=== PATIENT | male | born 1955 | race Caucasian/White ===

== ENCOUNTER 2020-12-29 09:27 | Outpatient (REF) | payer OTHER, SELFPAY ==
[2020-12-29 11:34] LABS: Appearance Urine TURBID; Color Urine YELLOW; Glucose Urine UA NEG (NEG); Leukocyte Esterase Urine NEG (NEG); Nitrite Urine NEG (NEG); Specific Gravity - Urine >= 1.030 (1.005-1.025); Urine Blood NEG (NEG); Urine Ketones NEG (NEG); Urine Protein NEG (NEG-TRACE)
[2020-12-29 11:48] LABS: MANUAL DIFF FLAG NO
[2020-12-29 12:00] LABS: Basophils Percent Auto 0.7 % (0-2); Eosinophils Absolute Auto 0.1 X10*3/uL (0.0-0.4); Eosinophils Percent Auto 1.5 % (0-4); Hematocrit 41.7 % (42.0-52.0); Hemoglobin 14.1 g/dl (14.0-18.0); Imm Gran Abs Auto 0.01 X10*3/uL (0.00-0.03); Imm Gran Pct Auto 0.2 % (0.0-0.4); Lymphocytes Absolute Auto 1.1 X10*3/uL (1.2-4.9); Lymphocytes Percent Auto 27.7 % (20-40); Mean Corpuscular HGB Conc 33.8 g/dl (31.0-36.0); Mean Corpuscular Hemoglobin 29.7 pg (27.0-33.0); Mean Platelet Volume 11.2 fL (9.4-12.4); Monocytes Absolute Auto 0.4 X10*3/uL (0.1-1.2); Monocytes Percent Auto 10.5 % (2-11); Neutrophils Absolute Auto 2.4 x10*3/uL (2.0-8.3); Neutrophils Percent Auto 59.4 % (45-73); Platelet Count 223 X10*3/uL (160-400); Red Blood Count 4.74 X10*6/uL (4.60-5.80); Red Cell Distribution Width 12.4 % (11.0-16.0); White Blood Count 4.1 X10*3/uL (4.8-10.8)
[2020-12-29 12:15] LABS: Alanine Aminotransferase 28 U/L (0-40); Albumin Level 4.3 g/dL (3.5-5.0); Alkaline Phosphatase 81 U/L (39-117); Anion Gap 12 (12-20); Aspartate Amino Transferase 27 U/L (5-37); Bilirubin Total 1.4 mg/dL (0.0-1.0); Blood Urea Nitrogen 17 mg/dL (9-16); Calcium 9.4 mg/dL (8.4-10.2); Carbon Dioxide 25 mmol/L (22-29); Chloride 108 mmol/L (96-108); Cholesterol 254 mg/dL; Estimated Glomerular Filt Rate > 60; Glucose Fasting 111 mg/dL (60-99); HDL Cholesterol 69 mg/dL; LDL Cholesterol Calculated 165 mg/dl; Potassium 4.8 mmol/L (3.3-5.1); Sodium 140 mmol/L (135-145); Triglycerides 100 mg/dL
[2020-12-29 12:18] LABS: Amorphous Sediment Urine 4+ /LPF; Calcium Oxalate Crystals Urine 1+ /LPF; RBC Urine 0 /HPF (0); WBC Urine 0 /HPF (0-4)
[2020-12-29 12:38] LABS: Thyroid Stimulating Hormone 3.52 uIU/mL (0.32-4.0); Vitamin D 25-OH Total 17.9 ng/mL (>30)
[2020-12-30 12:02] LABS: Free Prostate Spec Ag 0.2 ng/mL; Percent Free Prostate Spec Ag 33 % (calc) (>25); Prostate Specific Ag Total 0.6 ng/mL (< OR = 4.0)
== END 2020-12-29 09:28 | disposition home or self-care (01) ==
LOC: HO.HMGCLDS 09:27
PROVIDERS: PCP Internal Medicine; Visit Provider Internal Medicine
DX: Z00.00 Encounter for general adult medical examination without abnormal findings (principal); E78.00 Pure hypercholesterolemia, unspecified; J45.30 Mild persistent asthma, uncomplicated; J30.1 Allergic rhinitis due to pollen; Z12.5 Encounter for screening for malignant neoplasm of prostate
CPT/HCPCS: 36415; 80053; 80061; 81001; 82306; 84154; 84443; 85025

== ENCOUNTER → 2021-02-11 09:17 | Outpatient (BNVA) | payer OTHER, SELFPAY | PROVIDERS: PCP Internal Medicine; Visit Provider Internal Medicine ==

== ENCOUNTER 2021-03-12 09:09 | Outpatient (REF) | payer OTHER, SELFPAY ==
--- NOTE | 2021-03-12 15:58 | PFT_ITS ---
FLOWS: FEV1 84% of predicted at 3.21 L. FVC 97% of predicted at 4.94 L. FEV1 to FVC ratio of 0.65. No bronchodilator response except in small to medium airways. LUNG VOLUMES: Total lung capacity 98% of predicted at 7.48 L. Residual volume 102% of predicted at 2.60 L. Slow vital capacity 95% of predicted at 4.87 L. Expiratory reserve volume 42% of predicted at 0.65 L. Diffusion capacity is mildly decreased. IMPRESSION: Mild to moderate obstructive ventilatory defect with no bronchodilator response except in small to medium airways. Decreased diffusion capacity suggests emphysema. MD ISABELLE Roche/MODL / [id number]
== END 2021-03-12 09:10 | disposition home or self-care (01) ==
LOC: HO.RESP 09:09
PROVIDERS: PCP Internal Medicine; Visit Provider Internal Medicine
DX: R06.00 Dyspnea, unspecified (principal); J44.9 Chronic obstructive pulmonary disease, unspecified
CPT/HCPCS: 94060; 94727; 94729

== ENCOUNTER → 2021-03-16 10:08 | Outpatient (BNVA) | payer OTHER, SELFPAY | PROVIDERS: PCP Internal Medicine; Visit Provider Internal Medicine ==

== ENCOUNTER 2022-03-29 09:23 | Outpatient (REF) | payer OTHER, SELFPAY ==
[2022-03-29 11:26] LABS: Appearance Urine Clear; Color Urine Yellow; Glucose Urine UA Negative (Negative); Leukocyte Esterase Urine Negative (Negative); Nitrite Urine Negative (Negative); PH 5.5 (5.0-9.0); Specific Gravity - Urine 1.025 (1.005-1.025); Urine Blood Negative (Negative); Urine Ketones Negative (Negative); Urine Protein Negative (Neg-Trace)
[2022-03-29 11:29] LABS: MANUAL DIFF FLAG NO
[2022-03-29 11:34] LABS: Bacteria Urine None Seen (None Seen); Hyaline Casts Urine 0-2 /LPF (0-2); RBC Urine 0-2 /HPF (0-2); Squamous Epithelial Cell Urine 0-2 /HPF (0-2); WBC Urine 0-5 /HPF (0-5)
[2022-03-29 11:36] LABS: Basophils Percent Auto 0.8 % (0-2); Eosinophils Absolute Auto 0.1 X10*3/uL (0.0-0.4); Hematocrit 40.4 % (42.0-52.0); Hemoglobin 13.5 g/dl (14.0-18.0); Imm Gran Abs Auto 0.01 X10*3/uL (0.00-0.03); Imm Gran Pct Auto 0.2 % (0.0-0.4); Lymphocytes Absolute Auto 1.2 X10*3/uL (1.2-4.9); Lymphocytes Percent Auto 22.6 % (20-40); Mean Corpuscular HGB Conc 33.4 g/dl (31.0-36.0); Mean Corpuscular Hemoglobin 29.1 pg (27.0-33.0); Mean Corpuscular Volume 87.1 fL (80.0-98.0); Mean Platelet Volume 10.8 fL (9.4-12.4); Monocytes Absolute Auto 0.5 X10*3/uL (0.1-1.2); Monocytes Percent Auto 9.7 % (2-11); Neutrophils Absolute Auto 3.4 x10*3/uL (2.0-8.3); Neutrophils Percent Auto 65.7 % (45-73); Platelet Count 210 X10*3/uL (160-400); Red Blood Count 4.64 X10*6/uL (4.60-5.80); Red Cell Distribution Width 12.4 % (11.0-16.0); White Blood Count 5.2 X10*3/uL (4.8-10.8)
[2022-03-29 12:04] LABS: Alanine Aminotransferase 22 U/L (0-40); Albumin Level 4.1 g/dL (3.5-5.0); Alkaline Phosphatase 87 U/L (39-117); Anion Gap 13 (12-20); Aspartate Amino Transferase 21 U/L (5-37); Bilirubin Total 1.5 mg/dL (0.0-1.0); Blood Urea Nitrogen 17 mg/dL (9-16); Calcium 9.5 mg/dL (8.4-10.2); Carbon Dioxide 22 mmol/L (22-29); Chloride 110 mmol/L (96-108); Cholesterol 179 mg/dL; Estimated Glomerular Filt Rate > 60; Glucose Fasting 103 mg/dL (60-99); HDL Cholesterol 66 mg/dL; LDL Cholesterol Calculated 97 mg/dl; Potassium 4.3 mmol/L (3.3-5.1); Sodium 141 mmol/L (135-145); Total Protein 6.5 g/dL (6.5-8.0); Triglycerides 80 mg/dL
[2022-03-29 12:06] LABS: PSA,Total (Free>4and<10) 0.74 ng/mL (0.00-4.00)
[2022-03-29 12:07] LABS: Thyroid Stimulating Hormone 3.05 uIU/mL (0.32-4.0); Vitamin D 25-OH Total 25.9 ng/mL (>30)
== END 2022-03-29 09:24 | disposition home or self-care (01) ==
LOC: HO.HMGCLDS 09:23
PROVIDERS: PCP Internal Medicine; Visit Provider Internal Medicine
DX: Z00.00 Encounter for general adult medical examination without abnormal findings (principal); Z12.5 Encounter for screening for malignant neoplasm of prostate; J45.30 Mild persistent asthma, uncomplicated; J30.1 Allergic rhinitis due to pollen; E78.00 Pure hypercholesterolemia, unspecified
CPT/HCPCS: 36415; 80053; 80061; 81001; 82306; 84153; 84443; 85025

== ENCOUNTER 2022-07-15 10:29 | Day surgery (SDC) | payer OTHER, SELFPAY ==
--- NOTE | 2022-07-14 09:33 | HO.ANESPROP2 ---
Documented by User: Lindsay Marsh NP 07/14/22 09:35 HPI - Anesthesia Eval Consult details Narrative: 67yo M for Upper Endoscopy and Colonoscopy PMFSH Active Problems Active Problems: All Active Problems (Updated 07/13/22 @ 14:10 by Lindsay Marsh NP) Allergic rhinitis (Acute) Asthma (Acute) COPD (chronic obstructive pulmonary disease) (Acute) Past Medical History Medical History (Updated 07/13/22 @ 14:10 by Lindsay Marsh NP) Allergic rhinitis Asthma COPD (chronic obstructive pulmonary disease) HLD (hyperlipidemia) Surgical History Surgical History (Updated 07/13/22 @ 14:10 by Lindsay Marsh NP) H/O colonoscopy (~2017) Social History Social History Advance Directives: No Advance Directives Information Provided: Yes Meds Allergies Allergy/AdvReac Type Severity Reaction Status Date / Time environmental allergies Allergy Sneezing Verified 07/14/22 12:10 Home Medications Medication Instructions Recorded Confirmed Last Taken Type atorvastatin 40 mg tablet 40 mg PO DAILY 02/11/21 Unknown History cetirizine 10 mg tablet 10 mg PO DAILY 02/11/21 Unknown History fluticasone propionate 50 spray intranasal 02/11/21 Unknown History mcg/actuation nasal spray,suspension montelukast 10 mg tablet 10 mg PO DAILY 02/11/21 Unknown History omeprazole 20 mg capsule,delayed 20 mg PO DAILY 02/11/21 Unknown History release albuterol sulfate 90 mcg/actuation 2 inh inhalation Q6-8H PRN 03/16/21 Unknown History aerosol inhaler coenzyme Q10 75 mg capsule (Ultra 75 mg PO DAILY 03/16/21 Unknown History CoQ10) atorvastatin 40 mg tablet 40 mg PO DAILY 07/13/22 07/13/22 Unknown History Exam Exam Date and Time: July 14, 2022 0933 Pertinent Lab Results Pertinent Lab Results: Laboratory Tests 03/29/22 03/29/22 09:33 09:33 WBC 5.2 Hgb 13.5 L Hct 40.4 L Plt Count 210 Sodium 141 Potassium 4.3 Chloride 110 H Carbon Dioxide 22 BUN 17 H Creatinine 0.90 Assessment and Plan Assessment Anesthesia Assessment: Chart Reviewed Documented by User: Isabella Loyd MD 07/15/22 11:10 [facility] Past Medical History Medical History (Updated 07/13/22 @ 14:10 by Lindsay Marsh NP) Allergic rhinitis Asthma COPD (chronic obstructive pulmonary disease) HLD (hyperlipidemia) Family History Family history of problems with anesthesia: No Surgical History Surgical History (Updated 07/13/22 @ 14:10 by Lindsay Marsh NP) H/O colonoscopy (~2017) History of Problems with Anesthesia: No Social History Social History Advance Directives: No Advance Directives Information Provided: Yes Meds Allergies Allergy/AdvReac Type Severity Reaction Status Date / Time environmental allergies Allergy Sneezing Verified 07/14/22 12:10 Home Medications Medication Instructions Recorded Confirmed Last Taken Type atorvastatin 40 mg tablet 40 mg PO DAILY 02/11/21 Unknown History cetirizine 10 mg tablet 10 mg PO DAILY 02/11/21 Unknown History fluticasone propionate 50 spray intranasal 02/11/21 Unknown History mcg/actuation nasal spray,suspension montelukast 10 mg tablet 10 mg PO DAILY 02/11/21 Unknown History omeprazole 20 mg capsule,delayed 20 mg PO DAILY 02/11/21 Unknown History release albuterol sulfate 90 mcg/actuation 2 inh inhalation Q6-8H PRN 03/16/21 Unknown History aerosol inhaler coenzyme Q10 75 mg capsule (Ultra 75 mg PO DAILY 03/16/21 Unknown History CoQ10) atorvastatin 40 mg tablet 40 mg PO DAILY 07/13/22 07/13/22 Unknown History Exam Airway Mallampati Class: II TM Dist: >3cm Neck ROM: Full Loose/Missing/Broken Teeth: No Heart: rr Lungs: cta Assessment and Plan Assessment Anesthesia Assessment: Anesthesia Plan Discussed Final Anesthetic Review Family History of Problems with Anesthesia: No History of Problems with Anesthesia: No NPO: Yes ASA Class: II Final Preanesthetic Review: No Changes in Pt Med Stat, Meds/Allgs Chart Reviewed, Consent Obtained/Reviewed and Anes Risks/Benef Reviewed Patient Risk: Low Procedure Risk: Low Anesthetic Plan Anesthetic Plan: MAC: Disposition: Standard PACU
[2022-07-15 11:24] VITALS: BP 155/0; PULSE 52; RESP 18; TEMP 36.4; O2SAT 98; BMI 25.1
--- NOTE | 2022-07-15 13:07 | PM.OP ---
Brief Operative Note Date of Service: 07/15/22 Pre-op diagnosis: GERD, Screening Post-op diagnosis: other (Colon Polyps, Hiatal hernia, Gastric polyp) Procedure: EGD with biopsies, Colonoscopy to the cecum and TI with bx/removal of polyps x 3, and hot snare polypectomy at 30cm Surgeon: Kevin Byrd Anesthesia: MAC Was an Sales Special Agent used for this Procedure?: No Estimated blood loss (mL): 2.0 Pathology: other (A. Gastric polyp B. Gastric antrum C. EG Junction at 39cm D. Transverse colon polyp E. Polyp at 50cm F. Polyp at 20cm G. Polyp at 30cm) Condition: stable Disposition: PACU
[2022-07-15 13:10] VITALS: BP 112/64; PULSE 64; RESP 16; TEMP 36.1; O2SAT 98
[2022-07-15 13:25] VITALS: BP 122/71; PULSE 59; RESP 16; O2SAT 98
[2022-07-15 13:34] VITALS: BP 124/79; PULSE 50; RESP 16; TEMP 36.6; O2SAT 97
--- NOTE | 2022-07-16 00:06 | OP_ITS ---
DATE OF SERVICE: 07/15/2022 SURGEON: Kevin Byrd MD INDICATIONS: The patient presents for evaluation of chronic gastroesophageal reflux, personal history of tubular adenoma of the colon, family history of colon cancer, and colorectal cancer screening. Full consent has been obtained from him for both procedures, including risks of bleeding and perforation. PREOPERATIVE DIAGNOSIS: POSTOPERATIVE DIAGNOSIS: Gastroesophageal reflux, personal history of tubular adenoma of the colon, family history of colon cancer, colorectal cancer screening, hiatal hernia, gastric polyp, colon polyps, diverticulosis, and internal hemorrhoids. PROCEDURE PERFORMED: Esophagogastroduodenoscopy with biopsies, and colonoscopy to the cecum and terminal ileum with biopsy and removal of polyps and hot snare polypectomy. ESTIMATED BLOOD LOSS: COMPLICATIONS: ANESTHESIA: Monitored anesthesia care. ASSISTANTS: SPECIMENS: PREOPERATIVE DIAGNOSES: Gastroesophageal reflux, personal history of tubular adenoma of the colon, family history of colon cancer, colorectal cancer screening. DESCRIPTION OF PROCEDURE: The patient was placed in the left lateral decubitus position. The Olympus video gastroscope was passed in the posterior oropharynx and upper esophagus under direct vision. The scope was passed slowly to the distal esophagus. The gastroesophageal junction appeared at 39 cm. There was some slight irregularity consistent with chronic reflux, but no definitive evidence of Araujo mucosa, and there was no esophagitis. The scope entered the stomach. There was a small hiatal hernia. The scope was advanced to the pylorus, and the duodenum was cannulated to the descending portion. The duodenum including the bulb appeared normal without mass or ulceration. The scope was withdrawn back into the stomach. The gastric antrum had some slight areas of erythema, but no erosions or ulcerations. There was good peristalsis. In the body of the stomach, along the greater curvature, was an approximately 8 to 10 mm inflammatory appearing polyp which was biopsied several times and basically almost completely removed. The scope was retroflexed visualizing the proximal stomach carefully, which appeared normal, without any sign of mass or ulceration. The scope was straightened. Biopsies were obtained from the gastric antrum. The scope was withdrawn back into the esophagus. Biopsies were obtained at the EG junction at 39 cm. Proximal to this, the esophageal mucosa appeared normal. The scope was withdrawn from the patient. He was turned around for the colonoscopy. The digital rectal exam revealed no abnormalities. The Olympus video pediatric colonoscope was entered into the rectum and advanced easily to the cecum. Once in the cecum, I did identify normal-appearing cecal pouch with appendiceal orifice and a normal-appearing ileocecal valve. The terminal ileum was cannulated and appeared normal. Scope was withdrawn back in the colon. The entire cecum and ileocecal valve appeared normal. The scope was slowly withdrawn assessing all mucosal surfaces carefully. Preparation was excellent. In the transverse colon, at 50 cm and at 20 cm were approximately 3 or 4 mm polyps, which were each biopsied and completely removed with a cold biopsy forceps. At 30 cm was an approximately 10 mm grossly adenomatous polyp, which was removed by hot snare polypectomy and recovered by suction. The polypectomy site appeared clean, without any sign of residual polyp nor bleeding. I did not visualize any other polyps, colitis, nor angiodysplasia. There was a mild amount of sigmoid diverticulosis. In the rectum, scope was retroflexed visualizing internal hemorrhoids, but no other pathology. The rectal mucosa appeared normal. The scope was straightened and withdrawn from the patient. He tolerated the procedures well and was returned to the recovery area in stable condition. IMPRESSION: 1. Hiatal hernia, gastroesophageal reflux, rule out Araujo's esophagus. 2. Gastric polyps. 3. Rule out gastritis. 4. Colon polyps. 5. Diverticulosis. 6. Internal hemorrhoids. PLAN: The results of the pathology will be checked. I would recommend a repeat colonoscopy in 5 years for further screening and surveillance. He was advised to continue omeprazole as needed for his heartburn and reflux. He was advised not to use any aspirin or NSAIDs for 1 week. He would see me otherwise as needed. MD ELVIA Ryan/SCOTT / [id number] MARY
== END 2022-07-15 14:08 | disposition home or self-care (01) ==
PROVIDERS: PCP Internal Medicine; Visit Provider Internal Medicine
PROC: (CPT 45385; principal; 2022-07-15 11:30)
DX: Z12.11 Encounter for screening for malignant neoplasm of colon (principal); Z86.010 Personal history of colon polyps; Z80.0 Family history of malignant neoplasm of digestive organs; D12.3 Benign neoplasm of transverse colon; D12.5 Benign neoplasm of sigmoid colon; K57.30 Diverticulosis of large intestine without perforation or abscess without bleeding; K64.8 Other hemorrhoids; K21.9 Gastro-esophageal reflux disease without esophagitis; K31.7 Polyp of stomach and duodenum; K44.9 Diaphragmatic hernia without obstruction or gangrene; E78.5 Hyperlipidemia, unspecified; J45.909 Unspecified asthma, uncomplicated; Z79.51 Long term (current) use of inhaled steroids; Z79.899 Other long term (current) drug therapy; Z87.891 Personal history of nicotine dependence
CPT/HCPCS: 45385; 45380; 43239; 88305; 88342; J2250

== ENCOUNTER 2022-09-29 13:12 | Outpatient (AMB) | payer OTHER, SELFPAY ==
[2022-09-29 13:16] VITALS: BP 154/78; PULSE 66; O2SAT 97; BMI 26.0
--- NOTE | 2022-09-29 13:16 | MHC.OFFVIS ---
Intake Vital Signs 09/29/22 13:16 Height 6 ft 2 in Weight 202 lb 13.204 oz BMI 26.0 BP 154/78 H Blood Pressure Location Lt brachial Position Sitting Pulse 66 Pulse Source Pulse Oximeter Pulse Oximetry (%) 97 Oxygen Delivery Method Room Air Intake Visit Reasons: Asthma Intake Note: Pt presents today to discuss refills and reports he is doing mostly good. Allergies environmental allergies Allergy (Verified 09/29/22 13:26) Sneezing Medication List - Last Reconciled 09/29/22 by Mark Cheng MD albuterol sulfate 90 mcg/actuation 2 inhalations inhalation Q6-8H PRN atorvastatin 40 mg PO DAILY atorvastatin 40 mg PO DAILY cetirizine 10 mg PO DAILY coenzyme Q10 (Ultra CoQ10) 75 mg PO DAILY Dulera 200-5 mcg/actuation (mometasone-formoterol) 2 puffs PO BID NS fluticasone propionate 50 mcg/actuation sprays intranasal [id number] [id number] mg (MegaRed [place]-3 Krill Oil) caps PO montelukast 10 mg PO DAILY omeprazole 20 mg PO DAILY Do you need a note to return to daycare/school/sports/work: No HPI Asthma HPI Details 67 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 THE PULMONARY PROBLEMS INCLUDE MILD ALLERGIC RHINITIS, CHRONIC, AND MILD OBSTRUCTIVE AIRWAY DISORDER. HE HAS BEEN FAIRLY STABLE, MOSTLY USES DULERA ONLY ONCE A DAY, AND SOMETIMES TWICE A DAY . HE IS VERY ACTIVE PLAYS TENNIS AND, BICYCLES, WITHOUT MUCH RESPIRATORY DISTRESS. HIS NASAL CONGESTION IS CHRONIC AND ALMOST DAILY, HE HAS BEEN USING CETIRIZINE 10 MG. A DAY REGULARLY ALSO USES FLONASE 2 SPRAY IN EACH NOSTRIL DAILY. [facility] Medical History (Updated 09/29/22 @ 13:50 by Mark Cheng MD) Allergic rhinitis Asthma COPD (chronic obstructive pulmonary disease) HLD (hyperlipidemia) Surgical History H/O colonoscopy (~2018) Social History Are you a primary livestock caretaker to a significant other at home: No Do you presently have visiting nurse or other home services: No Patient Tobacco Use Status: Former Tobacco user Tobacco use type: Cigarette Review of Systems Const All systems reviewed & are unremarkable except as noted in HPI and below Eyes Reports no additional complaints ENT Reports nasal congestion and Reports nasal discharge (Mild intermittent) Card Denies chest pain, Denies irregular heart rhythm and Denies leg edema Resp Reports as per HPI GI Reports as per HPI Reports no additional complaints Musc Reports no additional complaints Skin/Breast Reports system reviewed and no additional complaints, except as documented Neuro Reports no additional complaints Psych Reports no additional complaints Physical Exam Vital Signs: Last Vital Signs Pulse 66 09/29/22 13:16 BP 154/78 H 09/29/22 13:16 Pulse Ox 97 09/29/22 13:16 Oxygen Delivery Method Room Air 09/29/22 13:16 BMI result Body Mass Index 26.0 Const General: healthy appearing, comfortable, no acute distress, alert and awake Orientation/consciousness: patient oriented x3 HEENT Head: Yes normal to inspection General nose exam: No nasal polyps present and No nasal discharge present Face and sinus: Yes sinuses nontender Mouth: oropharynx normal Throat: Yes posterior oropharynx normal Eyes General: appearance normal, both eyes and all related structures Neck Neck: Yes normal visual inspection, Yes no lymphadenopathy, Yes trachea midline and Yes no JVD Thyroid: Thyroid normal Chest Chest palpation & inspection: normal inspection of the chest, normal palpation of entire chest wall and no tenderness Resp Other: Percussion note is resonant, he has good breath sounds on both sides. No wheezes rhonchi or crepitations are heard . Cardio Palpation: normal PMI Rate: regular rate Rhythm: regular rhythm Heart sounds: no gallops and no murmurs GI Palpation (GI): Soft to palpation, nontender, No hepatosplenomegaly present and no masses Auscultation: normal bowel sounds Back/Spine/Pelvis Thoracic/Lumbar Spine: thoracic and lumbar spine normal to inspection Skin General skin exam: no rashes or lesions noted Neuro General: patient oriented x3 and no focal motor deficits Cranial nerves: Yes CN's II-XII intact bilaterally Extrem General: Yes normal to inspection, Yes no clubbing, cyanosis or edema and Yes no calf tenderness Psych Appearance: grossly normal and well kempt Speech and movement: Normal speech and movement present Assessment & Plan Assessment & Plan (1) Allergic rhinitis: Comment: This patient has been treated for long-time for possibility of allergic rhinitis and upper airway allergies. His symptoms are consistent with, chronic, perenial ALLERGIC rhinosinusitis. His possible triggers include the usual household items, But especially the dog that he has a PET. He is well aware of this. TX: Continue present treatment which includes montelukast 10 mg daily, cetirizine 10 mg once a day p.r.n., and Flonase 2 spray each nostril daily. * it should be noted that he has had immunotherapy in the past without much benefit. Code(s): J30.9 - Allergic rhinitis, unspecified (2) COPD (chronic obstructive pulmonary disease): Comment: Pulmonary function test shows presence of mild chronic obstructive pulmonary disease . It seems to be well controlled at present. TX : Dulera 200-5 2 puffs twice a day. But if symptoms are under control then he my use only once a day. We did have detailed general discussion about ongoing management of chronic obstructive pulmonary disease. Revisit to me Q 6 months and as needed. Code(s): J44.9 - Chronic obstructive pulmonary disease, unspecified Medications: Changed From Dulera 200-5 mcg/actuation (mometasone-formoterol) 2 puffs PO BID 13 grams 5RF NS To Dulera 200-5 mcg/actuation (mometasone-formoterol) 2 puffs PO BID 13 grams 3RF ASTHMA/COPD 90 days NS From montelukast 10 mg PO DAILY ALLERGIC rHINITIS To montelukast 10 mg PO DAILY 90 tabs 3RF ALLERGIC rHINITIS 90 days Coding Level of Care Code Est Pt Level 3 (11300) Diagnoses Allergic rhinitis J30.9 COPD (chronic obstructive pulmonary disease) J44.9
== END 2022-09-29 13:46 | disposition home or self-care (01) ==
PROVIDERS: PCP Internal Medicine; Visit Provider Internal Medicine
DX: J30.9 Allergic rhinitis, unspecified (principal); J44.9 Chronic obstructive pulmonary disease, unspecified
CPT/HCPCS: 99213

== ENCOUNTER → 2022-09-29 13:12 | Outpatient (BNVA) | payer OTHER, SELFPAY | PROVIDERS: PCP Internal Medicine; Visit Provider Internal Medicine ==

== ENCOUNTER 2023-04-06 15:31 | Outpatient (AMB) | payer OTHER, SELFPAY ==
[2023-04-06 15:35] VITALS: BP 124/80; PULSE 59; O2SAT 100; BMI 26.3
--- NOTE | 2023-04-06 15:35 | MHC.OFFVIS ---
Intake Vital Signs 04/06/23 15:35 Height 6 ft 2 in Weight 205 lb BMI 26.3 BP 124/80 Blood Pressure Location Lt brachial Position Sitting Pulse 59 Pulse Source Pulse Oximeter Pulse Oximetry (%) 100 Oxygen Delivery Method Room Air Intake Visit Reasons: Asthma Intake Note: pt is here for follow up and states his breathing comes and goes and has days he struggles with. 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 Allergies environmental allergies Allergy (Verified 04/06/23 16:06) Sneezing Medication List - Last Reconciled 04/06/23 by Mark Cheng MD albuterol sulfate 90 mcg/actuation 2 inhalations inhalation Q6-8H PRN atorvastatin 40 mg PO DAILY cetirizine 10 mg PO DAILY coenzyme Q10 (Ultra CoQ10) 75 mg PO DAILY fluticasone propionate 50 mcg/actuation sprays intranasal [id number] [phone] mg (MegaRed [place]-3 Krill Oil) caps PO mometasone-formoterol 200-5 mcg/actuation (Dulera) 2 puffs PO BID montelukast 10 mg PO DAILY 90 days omeprazole 20 mg PO DAILY Do you need a note to return to daycare/school/sports/work: No HPI Asthma HPI Details 67 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 HE HAS ONLY OCCASIONAL NASAL CONGESTION WHICH HAPPENS MORE IN THE LATE SUMMER MONTHS, AND IS CONTROLLED BY USING FLONASE WELL MONTELUKAST. BRONCHIAL ASTHMA REMAINS UNDER GOOD CONTROL LONG HE IS USING DULERA 9 ONLY ISSUE IS THAT CO-PAYMENT FOR DULERA IS VERY HIGH . HE HAS VERY LITTLE COUGH OR WHEEZING. HE IS NONSMOKER. [facility] Medical History (Updated 04/06/23 @ 16:14 by Mark Cheng MD) Asthma-COPD overlap syndrome HLD (hyperlipidemia) Allergic rhinitis Asthma COPD (chronic obstructive pulmonary disease) Surgical History H/O colonoscopy (~2017) Social History Are you a primary director of managed care to a significant other at home: No Do you presently have visiting nurse or other home services: No Patient Tobacco Use Status: Former Tobacco user Tobacco use type: Cigarette Review of Systems Const All systems reviewed & are unremarkable except as noted in HPI and below Eyes Reports no additional complaints ENT Reports nasal congestion and Reports nasal discharge (Mild intermittent) Card Denies chest pain, Denies irregular heart rhythm and Denies leg edema Resp Reports as per HPI GI Reports as per HPI Reports no additional complaints Musc Reports no additional complaints Skin/Breast Reports system reviewed and no additional complaints, except as documented Neuro Reports no additional complaints Psych Reports no additional complaints Physical Exam Vital Signs: Last Vital Signs Pulse 59 04/06/23 15:35 BP 124/80 04/06/23 15:35 Pulse Ox 100 04/06/23 15:35 Oxygen Delivery Method Room Air 04/06/23 15:35 BMI result Body Mass Index 26.3 Const General: healthy appearing, comfortable, no acute distress, alert and awake Orientation/consciousness: patient oriented x3 HEENT Head: Yes normal to inspection General nose exam: No nasal polyps present and No nasal discharge present Face and sinus: Yes sinuses nontender Mouth: oropharynx normal Throat: Yes posterior oropharynx normal Eyes General: appearance normal, both eyes and all related structures Neck Neck: Yes normal visual inspection, Yes no lymphadenopathy, Yes trachea midline and Yes no JVD Thyroid: Thyroid normal Chest Chest palpation & inspection: normal inspection of the chest, normal palpation of entire chest wall and no tenderness Resp Other: Percussion note is resonant, he has good breath sounds on both sides. No wheezes rhonchi or crepitations are heard . Cardio Palpation: normal PMI Rate: regular rate Rhythm: regular rhythm Heart sounds: no gallops and no murmurs GI Palpation (GI): Soft to palpation, nontender, No hepatosplenomegaly present and no masses Auscultation: normal bowel sounds Back/Spine/Pelvis Thoracic/Lumbar Spine: thoracic and lumbar spine normal to inspection Skin General skin exam: no rashes or lesions noted Neuro General: patient oriented x3 and no focal motor deficits Cranial nerves: Yes CN's II-XII intact bilaterally Extrem General: Yes normal to inspection, Yes no clubbing, cyanosis or edema and Yes no calf tenderness Psych Appearance: grossly normal and well kempt Speech and movement: Normal speech and movement present Assessment & Plan Assessment & Plan (1) Asthma-COPD overlap syndrome: Comment: HE HAS A COMBINATION OF MILD COPD WITH FEATURES OF BRONCHIAL ASTHMA. REMAINS WELL CONTROLLED WITH THE CURRENT MEDICAL REGIMEN. Code(s): J44.89 - Other specified chronic obstructive pulmonary disease Plan: CONTINUE MONTELUKAST 10 MG DAILY DULERA 200-5 MAY USE 1 INHALATION B.I.D. ARE 2 INHALATION JUST IN THE MORNING. WE DISCUSS ABOUT HIGH CO-PAYMENT, HE WILL FIND OUT FROM THE PHARMACY IF THERE IS AN ALTERNATIVE AGENT WHICH HAS LESS COPING . INITIALLY HE USED TO BE ON ADVAIR WHICH DID NOT HELP MUCH. (2) Allergic rhinitis: Comment: This patient has been treated for long-time for possibility of allergic rhinitis and upper airway allergies. His symptoms are consistent with, chronic, perenial ALLERGIC rhinosinusitis. His possible triggers include the usual household items, But especially the dog that he has a PET. He is well aware of this. Code(s): J30.9 - Allergic rhinitis, unspecified Plan: TX: Continue present treatment which includes montelukast 10 mg daily, cetirizine 10 mg once a day p.r.n., and Flonase 2 spray each nostril daily. * it should be noted that he has had immunotherapy in the past without much benefit. Coding Level of Care Code Est Pt Level 3 (74316) Diagnoses Asthma-COPD overlap syndrome J44.89 Allergic rhinitis J30.9
== END 2023-04-06 16:06 | disposition home or self-care (01) ==
PROVIDERS: PCP Internal Medicine; Visit Provider Internal Medicine
DX: J44.89 Other specified chronic obstructive pulmonary disease (principal); J30.9 Allergic rhinitis, unspecified
CPT/HCPCS: 99213

== ENCOUNTER → 2023-04-06 15:31 | Outpatient (BNVA) | payer OTHER, SELFPAY | PROVIDERS: PCP Internal Medicine; Visit Provider Internal Medicine ==

== ENCOUNTER 2023-09-26 14:17 | Outpatient (AMB) | payer OTHER, SELFPAY ==
--- NOTE | 2023-09-26 14:23 | A.OFFVIS_ITS ---
Vital Signs 09/26/23 14:24 Height 6 ft 2 in Weight 206 lb 2.115 oz BMI 26.5 BP 134/88 Blood Pressure Location Lt brachial Position Sitting Pulse 69 Pulse Source Pulse Oximeter Pulse Oximetry (%) 98 Oxygen Delivery Method Room Air Intake Visit Reasons: Asthma Intake Note: pt is here for follow up and states he is feeling okay. Today is having a bad for his breathing. 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: No Allergies environmental allergies Allergy (Verified 09/26/23 15:20) Sneezing Medication List - Last Reconciled 09/26/23 by Mark Cheng MD albuterol sulfate 90 mcg/actuation 2 inhalations inhalation Q6-8H PRN atorvastatin 40 mg PO DAILY cetirizine 10 mg PO DAILY coenzyme Q10 (Ultra CoQ10) 75 mg PO DAILY fluticasone propionate 50 mcg/actuation sprays intranasal ytqsu-nu-0-sop-kxf-plfdler-ast [phone] mg (MegaRed [place]-3 Krill Oil) caps PO mometasone-formoterol 200-5 mcg/actuation (Dulera) 2 puffs PO BID montelukast 10 mg PO DAILY 90 days omeprazole 20 mg PO DAILY Do you need a note to return to daycare/school/sports/work: No HPI HPI Asthma: Details: 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 HE ALSO HAS MILD ALLERGIC RHINITIS WHICH FLARES UP OFF AND ON. HAS BEEN DOING VERY WELL BUT SINCE ABOUT YESTERDAY HE FEELS SOMEWHAT CONGESTED IN THE CHEST. THIS COINCIDES WITH INCREASED LOWER OF HUMIDITY. TODAY HE COMES FOR HIS ROUTINE FOLLOW-UP AND IS BASICALLY STABLE AND DOING WELL. HE HAS USED DULERA 200-4.52 PUFFS B.I.D., COMPLAINING THAT THE CO-PAYMENT PER MONTH IS 150 DOLLARS. INITIALLY HE WANTED TO STAY ON THIS AGENT HAS, THE OTHER EQUIVALENT MEDS DID NOT HELP HIM MUCH THIS. DULERA IS NOT ON THE FORMULARY LIST OF HIS [facility]ANCE [facility]. FAR NASAL CONGESTION IS CONCERNED THAT SEEMS TO BE UNDER CONTROL WITH USE OF MONTELUKAST 10 MG DAILY, FLONASE 2 SPRAYS IN EACH NOSTRIL DAILY. AND HE USES CETIRIZINE 10 MG ONCE A DAY [facility] Medical History Asthma-COPD overlap syndrome HLD (hyperlipidemia) Allergic rhinitis Asthma COPD (chronic obstructive pulmonary disease) Surgical History H/O colonoscopy (~2018) Social History Are you a primary resident care spec to a significant other at home: No Do you presently have visiting nurse or other home services: No Patient Tobacco Use Status: Former Tobacco user Tobacco use type: Cigarette Review of Systems Const All systems reviewed & are unremarkable except as noted in HPI and below Eyes Reports no additional complaints ENT Reports nasal congestion and Reports nasal discharge (Mild intermittent) Card Denies chest pain, Denies irregular heart rhythm and Denies leg edema Resp Reports as per HPI GI Reports as per HPI Reports no additional complaints Musc Reports no additional complaints Skin/Breast Reports system reviewed and no additional complaints, except as documented Neuro Reports no additional complaints Psych Reports no additional complaints Physical Exam Vital Signs: Last Vital Signs Pulse 69 09/26/23 14:24 BP 134/88 09/26/23 14:24 Pulse Ox 98 09/26/23 14:24 Oxygen Delivery Method Room Air 09/26/23 14:24 BMI result Body Mass Index 26.5 Const General: healthy appearing, comfortable, no acute distress, alert and awake Orientation/consciousness: patient oriented x3 HEENT Head: Yes normal to inspection General nose exam: No nasal polyps present and No nasal discharge present Face and sinus: Yes sinuses nontender Mouth: oropharynx normal Throat: Yes posterior oropharynx normal Eyes General: appearance normal, both eyes and all related structures Neck Neck: Yes normal visual inspection, Yes no lymphadenopathy, Yes trachea midline and Yes no JVD Thyroid: Thyroid normal Chest Chest palpation & inspection: normal inspection of the chest, normal palpation of entire chest wall and no tenderness Resp Other: Percussion note is resonant, he has good breath sounds on both sides. No wheezes rhonchi or crepitations are heard . Cardio Palpation: normal PMI Rate: regular rate Rhythm: regular rhythm Heart sounds: no gallops and no murmurs GI Palpation (GI): Soft to palpation, nontender, No hepatosplenomegaly present and no masses Auscultation: normal bowel sounds Back/Spine/Pelvis Thoracic/Lumbar Spine: thoracic and lumbar spine normal to inspection Skin General skin exam: no rashes or lesions noted Neuro General: patient oriented x3 and no focal motor deficits Cranial nerves: Yes CN's II-XII intact bilaterally Extrem General: Yes normal to inspection, Yes no clubbing, cyanosis or edema and Yes no calf tenderness Psych Appearance: grossly normal and well kempt Speech and movement: Normal speech and movement present Assessment & Plan Assessment & Plan (1) Asthma-COPD overlap syndrome: Comment: HE HAS A COMBINATION OF MILD COPD WITH FEATURES OF BRONCHIAL ASTHMA. REMAINS WELL CONTROLLED WITH THE CURRENT MEDICAL REGIMEN. Code(s): J44.89 - Other specified chronic obstructive pulmonary disease Category: Medical Plan: CONTINUE DULERA 200-5 2 PUFFS B.I.D. WILL EXPLORE IF ALTERNATIVE AGENTS HAVE LESS CO-PAYMENT. AND ALBUTEROL 2 PUFFS Q 6 HOURS P.R.N.. CONTINUE MONTELUKAST 10 MG DAILY (2) Allergic rhinitis: Comment: This patient has been treated for long-time for possibility of allergic rhinitis and upper airway allergies. His symptoms are consistent with, chronic, perenial ALLERGIC rhinosinusitis. His possible triggers include the usual household items, But especially the dog that he has a PET. He is well aware of this. Code(s): J30.9 - Allergic rhinitis, unspecified Category: Medical Plan: CONTINUE MONTELUKAST 10 MG DAILY FLONASE 2 SPRAY IN EACH NOSTRIL DAILY. CETIRIZINE 10 MG ONCE A DAY P.R.N. WHEN THERE IS INCREASED NASAL CONGESTION . Coding Level of Care Code Est Pt Level 3 (59715) Diagnoses Asthma-COPD overlap syndrome J44.89 Allergic rhinitis J30.9
[2023-09-26 14:24] VITALS: BP 134/88; PULSE 69; O2SAT 98; BMI 26.5
== END 2023-09-26 14:59 | disposition home or self-care (01) ==
PROVIDERS: PCP Internal Medicine; Visit Provider Internal Medicine
DX: J44.89 Other specified chronic obstructive pulmonary disease (principal); J30.9 Allergic rhinitis, unspecified
CPT/HCPCS: 99213

== ENCOUNTER → 2023-09-26 14:17 | Outpatient (BNVA) | payer OTHER, SELFPAY | PROVIDERS: PCP Internal Medicine; Visit Provider Internal Medicine ==

== ENCOUNTER → 2024-03-28 14:04 | Outpatient (BNVA) | payer OTHER, SELFPAY | PROVIDERS: PCP Internal Medicine; Visit Provider Internal Medicine ==

== ENCOUNTER 2024-09-25 12:48 | Outpatient (AMB) | payer OTHER, SELFPAY ==
--- OUTSIDE RECORDS SUMMARY | 2024-09-25 13:20 | XMS_ITS | Encounter Summary ---
Author Organization [facility] Address [address] [place] [address] Phone Care Team Providers Care Biodiesel Product Development Manager Name Role Phone John Martinez DO Primary Care Provider [phone] Encounter Details Date Type Department Care Team (Late st Contact Info) Description 02/06/2024 Procedure Pass OR Admitting Dept - Virtual Department [address] [place] [address] Social History Tobacco Use Types Packs/Day Years Used Date Smoking Tobacco: Former Cigarettes 1 1 970 - 1994 Smokeless Tobacco: Never Alcohol Use Standard Drinks/Week Comments Yes 6 (1 standard drink = 0.6 oz pur e alcohol) 3 days a week wine. Child or Family Care Answer Date Record ed Do you have problems with on e of the following making it difficult for you to work, study, or receive health care? No 06/06/2023 Education Answer Date Recorded Are you interested in more education? Not on tamela e 02/22/2023 Are you concerned about learning? Not on file 02/22/2023 No 02/22/2023 No 02/22/2023 Food Answer Date Recorded Within the past 6 months we worried whether our food would run out before we got money to buy more. Never True 06/06/2023 Within the past 6 months the food we bought just didn't last and we didn't have enough money to get more. Never True Residential Stability Answer Date Recor ded What is your housing situation today? I have igor sing 06/06/2023 How many times have you move d in the past 12 months? Zero (I did not move) 06/06/2023 Paying for Meds Answer Date Recorded Do you have trouble paying for medicines? No 06/06/2023 Paying Utility Bills Answer Date Record ed Do you have trouble paying your heating or elect ricity bill? No 06/06/2023 Transportation Answer Date Recorded Has the lack of transportati on kept you from medical appointments or from getting medications? No 06/06/2023 Digital Access Answer Date Recorded No 06/06/2023 Yes 06/06/2023 Do you have reliable internet access at home? Ye s 06/06/2023 Do you have a device (e.g., phone, tablet, computer) with a working camera? Yes 06/06/2023 Intimate Partner Violence Answer Date R ecorded Are you denied basic needs s uch as food, clothing, or medical care? No 02/06/2024 In the past 12 months have y ou been in a relationship with a person who hurts, threatens, or tries to control you? No 02/06/2024 Are you denied basic needs s uch as food, clothing, or medical care? No 02/06/2024 In the past 12 months have y ou been in a relationship with a person who hurts, threatens, or tries to control you? 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 Not on file Not on file Not on file documented as of this encounter Plan of Treatment Upcoming Encounters Date Type Department Care Team (Late st Contact Info) Description 06/12/2025 11:00 AM EDT Office Visit [facility] [address] [place] [address] John Martinez DO [address], [address] [place] [address] [email or web address] documented as of this encounter Visit Diagnoses Not on filedocumented in this encounter Additional Health Concerns Assessment Noted Time PHQ-2 Depression Total Score: 0 06/06/19 24 4:53 PM EDT documented as of this encounter Care Teams Biodiesel Product Development Manager Relationship Specialty Start Date End Date John Martinez DO [address] [place] [address], [address] [place] [address] [email or web address] PCP - General Family Medicine 02/22/23 documented as of this encounter Additional Source Comments The information contained in this document represents components of the legal health record. It is not the complete legal health record.[facility]
--- OUTSIDE RECORDS SUMMARY | 2024-09-25 13:20 | XMS_ITS ---
Author Name Andres Wang Address Unknown Organization [facility] Care Team Providers Care News Photographer Name Role Phone Unavailable Primary Care Physician Unavailab le History Of Present Illness This is a 69 year old male who is following up for nodular basal cell carcinoma on the left upper cutaneous lip. He was seen on September 10, 2024, at which time Mohs Surgery (Repair: Advancement Flap (Single)) was performed and he was prescribed Doxycycline hyclate 100 mg capsule BID (Take one pill twice daily with food and water x 5 days. Media action can cause sun sensitivity use extra precaution while in the sun).The patient presents for suture removal.Today the patient reports: Quality: no swelling, no drainage, no redness, and no pain. Medications Medication Generic Name RxNorm Strength Strength Unit Route Dose Dose Form Frequency Date Started Date Ended Status Indication Sig Flonase Allergy Relief fluticas one propiona te 50 mcg/actua tion Intran brandon 1 spray , suspe nsion QD active atorvastati n 40 mg Oral table t suspend ed cetirizine 10 mg Oral 1 table t QD active coQ10 (ubiquinol) coQ10 (ubiquin ol) 100 mg Oral 1 capsu le QD active Lipitor atorvast atin 40 mg Oral 1 QD active MegaRed [facility] krill oil-hyal uronic-a staxanth 353 mg Oral 1 capsu le QD active montelukast 10 mg Oral 1 tabl e t QD active omeprazole 20 mg Oral 1 capsu le,de layed relea se( /EC) QD active albuterol sulfate albutero l sulfate 90 shiv 1 prn active Problems Problem Code Type Status Date of Diagnosis Date of Resolution Surgical follow-up (finding) 500477563( SNOMED) Diagnosis active 09/20/2024 Basal cell carcinoma of skin of lip (disorder) 608228958( SNOMED) Diagnosis active 09/10/2024 Scar conditions and fibrosis of skin (disorder) 808012950( SNOMED) Diagnosis active 05/28/2024 Seborrheic keratosis (disorder) 210258516( SNOMED) Diagnosis active 05/28/2024 Disorder of pigmentation (disorder) 470242858( SNOMED) Diagnosis active 05/28/2024 Actinic keratosis (disorder) ( SNOMED) Diagnosis active 05/28/2024 Neoplasm of uncertain behavior of skin (disorder) 90590284(S NOMED) Diagnosis active 05/28/2024 Carcinoma in situ of skin of upper limb (disorder) 58821516(S NOMED) Diagnosis active 06/22/2023 Scar conditions and fibrosis of skin (disorder) 851989944( SNOMED) Diagnosis active 05/16/2023 Basal cell carcinoma of upper extremity (disorder) 623470602( SNOMED) Diagnosis active 05/16/2023 Inflamed seborrheic keratosis (disorder) 486917672( SNOMED) Diagnosis active 05/16/2023 Seborrheic keratosis (disorder) 739535626( SNOMED) Diagnosis active 05/16/2023 Disorder of pigmentation (disorder) 403062897( SNOMED) Diagnosis active 05/16/2023 History of malignant neoplasm of skin (situation) 374644983( SNOMED) Diagnosis active 03/16/2022 Seborrheic keratosis (disorder) 422870486( SNOMED) Diagnosis active 03/16/2022 Disorder of capillaries (disorder) 42219247(S NOMED) Diagnosis active 03/16/2022 Disorder of pigmentation (disorder) 200053820( SNOMED) Diagnosis active 03/16/2022 History of malignant neoplasm of skin (situation) 398846528( SNOMED) Diagnosis active 03/17/2021 Actinic keratosis (disorder) 676224640( SNOMED) Diagnosis active 03/17/2021 Seborrheic keratosis (disorder) 325667711( SNOMED) Diagnosis active 03/17/2021 Basal cell carcinoma of face (disorder) 447068809( SNOMED) Diagnosis active 05/09/2018 Basal cell carcinoma of face (disorder) 453048910( SNOMED) Diagnosis active 04/17/2018 Other specified health status Z78.9(ICD- 10) Diagnosis active 03/14/2018 Senile hyperkeratosis (disorder) 059182778( SNOMED) Diagnosis active 03/14/2018 Asthma (disorder) 106930917( SNOMED) Problem active Hypercholesterolemia (disorder) 92043230(S NOMED) Problem active Basal cell carcinoma of skin (disorder) 502152029( SNOMED) Problem active Actinic keratosis (disorder) 948000440( SNOMED) Problem active Squamous cell carcinoma (disorder) 665361986( SNOMED) Problem active Results No data Encounters Service provided at [address], [address], [place], [place] [id number]. Office phonenumber is [phone]. Office fax number is [phone]. Encounter Diagnosis Location Date / Time Type Post-Operative Wound Check (Z48.817) [facility] 0802/2024 14:30:00 [facility] [address] Reason For Referral No data Procedures Procedure Date Mohs surgery (procedure) 09/10/2024 12:0 0 am UTC Shave biopsy (procedure) 05/28/2024 12:0 0 am UTC Destruction of premalignant skin lesion (procedure) 05/28/2024 12:00 am UTC Tumor destruction (procedure) 06/22/2023 12:00 am UTC Shave biopsy (procedure) 05/16/2023 12:0 0 am [place] Cryotherapy of skin lesion with liquid n itrogen (procedure) 03/17/2021 12:00 am [facility] Review Of Systems No Data Assessment 1.Post-Operative Wound CheckPost-Op Wound Check: left upper cutaneous lip; Assessment of Wound - well approximated, well contoured, and clean; Wound Dressings - petrolatum; Wound Care Blocks - SutureRemoval - The sutures were removed.. Plan of Care Code Detail Instructions 9443335 doxycycline hyclate 100 mg capsu le Take one pill twice daily with food and water x 5 days. Media action can cause sun sensitivity use extra precaution while in the sun Instructions No Data Social History Code Activity Start Date End Date 592029563 (SNOMED) Never smoker Sex male Sexual orientation Unspecified Gender identity Unspecified Vital Signs No data
--- NOTE | 2024-09-25 13:37 | MHC.OFFVIS ---
Vital Signs 09/25/24 13:38 Height 6 ft 2 in Weight 202 lb 13.204 oz BMI 26.0 BP 122/80 Blood Pressure Location Lt brachial Position Sitting Pulse 74 Pulse Source Pulse Oximeter Pulse Oximetry (%) 97 Oxygen Delivery Method Room Air Intake Visit Reasons: Asthma Intake Note: pt is here for follow up and states he is feeling mostly good with his breathing, only some bad days Allergies environmental allergies Allergy (Verified 09/25/24 13:53) Sneezing Medication List - Last Reconciled 09/25/24 by Mark Cheng MD albuterol sulfate 90 mcg/actuation 2 inhalations inhalation Q6-8H PRN atorvastatin 40 mg PO DAILY cetirizine 10 mg PO DAILY coenzyme Q10 (Ultra CoQ10) 75 mg PO DAILY fluticasone propionate 50 mcg/actuation sprays intranasal yclks-xn-0-esu-eiz-htxvoqn-ast [phone] mg (MegaRed [place]-3 Krill Oil) caps PO mometasone-formoterol 200-5 mcg/actuation (Dulera) 2 puffs PO BID montelukast 10 mg PO DAILY 90 days omeprazole 20 mg PO DAILY Do you need a note to return to daycare/school/sports/work: No HPI HPI 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 HIS SYMPTOMS ARE AROUND THE YEAR AND FLARE UP WITH ANY CHANGE IN THE CLIMATE, . MOSTLY HE THE BRONCHIAL ASTHMA IS UNDER CONTROL BUT HE DOES USE DULERA 200-50 1 OR 2 PUFFS DAILY IN THE MORNING. HE ALSO CONTINUES TO USE MONTELUKAST 10 MG DAILY. .THERE HAS BEEN NO RECENT CHANGE HE HAS HAD NO ACUTE RESPIRATORY INFECTION. [facility] Medical History Asthma-COPD overlap syndrome HLD (hyperlipidemia) Allergic rhinitis Asthma COPD (chronic obstructive pulmonary disease) Surgical History H/O colonoscopy (~2018) Social History Are you a primary animal caretaker to a significant other at home: No Do you presently have visiting nurse or other home services: No Patient Tobacco Use Status: Former Tobacco user Tobacco use type: Cigarette Review of Systems Const All systems reviewed & are unremarkable except as noted in HPI and below Eyes Reports no additional complaints ENT Reports nasal congestion and Reports nasal discharge (Mild intermittent) Card Denies chest pain, Denies irregular heart rhythm and Denies leg edema Resp Reports as per HPI GI Reports as per HPI Reports no additional complaints Musc Reports no additional complaints Skin/Breast Reports system reviewed and no additional complaints, except as documented Neuro Reports no additional complaints Psych Reports no additional complaints Physical Exam Vital Signs: Last Vital Signs Pulse 74 09/25/24 13:38 BP 122/80 09/25/24 13:38 Pulse Ox 97 09/25/24 13:38 Oxygen Delivery Method Room Air 09/25/24 13:38 BMI result Body Mass Index 26.0 Const General: healthy appearing, comfortable, no acute distress, alert and awake Orientation/consciousness: patient oriented x3 HEENT Head: Yes normal to inspection General nose exam: No nasal polyps present and No nasal discharge present Face and sinus: Yes sinuses nontender Mouth: oropharynx normal Throat: Yes posterior oropharynx normal Eyes General: appearance normal, both eyes and all related structures Neck Neck: Yes normal visual inspection, Yes no lymphadenopathy, Yes trachea midline and Yes no JVD Thyroid: Thyroid normal Chest Chest palpation & inspection: normal inspection of the chest, normal palpation of entire chest wall and no tenderness Resp Other: Percussion note is resonant, he has good breath sounds on both sides. No wheezes rhonchi or crepitations are heard . Cardio Palpation: normal PMI Rate: regular rate Rhythm: regular rhythm Heart sounds: no gallops and no murmurs GI Palpation (GI): Soft to palpation, nontender, No hepatosplenomegaly present and no masses Auscultation: normal bowel sounds Back/Spine/Pelvis Thoracic/Lumbar Spine: thoracic and lumbar spine normal to inspection Skin General skin exam: no rashes or lesions noted Neuro General: patient oriented x3 and no focal motor deficits Cranial nerves: Yes CN's II-XII intact bilaterally Extrem General: Yes normal to inspection, Yes no clubbing, cyanosis or edema and Yes no calf tenderness Psych Appearance: grossly normal and well kempt Speech and movement: Normal speech and movement present Office Procedures Spirometry Testing Spirometry Comments: Spirometry done in the office, Dr. Cheng has the results results scanned to his chart. [id number]- Spirometry Results Reviewed Results Reviewed: SPIROMETRY : 03/12/2021 8/6 /2025 FVC 94 % 91 % FEV1 79 % 84 % FEF 25-75 54 74 % Assessment & Plan Assessment & Plan (1) Asthma-COPD overlap syndrome: Comment: HE HAS A COMBINATION OF MILD COPD WITH FEATURES OF BRONCHIAL ASTHMA. REMAINS WELL CONTROLLED WITH THE CURRENT MEDICAL REGIMEN. SPIROMETRY SHOWS THAT HIS THE OBSTRUCTIVE COMPONENT IS DEFINITELY IMPROVED COMPARED TO 2021 Code(s): J44.89 - Other specified chronic obstructive pulmonary disease Category: Medical Plan: DULERA 200-5 ONE OR TWO PUFFS IN AMD USE IN PM IF ANY FLARE UP OF THE SYMPTOMS . ALBUTEROL HFA 2 PUFFS Q 4-6 HRS ONLY PRN (2) Allergic rhinitis: Comment: This patient has been treated for long-time for possibility of allergic rhinitis and upper airway allergies. His symptoms are consistent with, chronic, perenial ALLERGIC rhinosinusitis. His possible triggers include the usual household items, But especially the dog that he has as a PET. He is well aware of this. At present his nasal symptoms are well controlled Code(s): J30.9 - Allergic rhinitis, unspecified Category: Medical Plan: Continue montelukast 10 mg daily. Cetirizine 10 mg once a day p.r.n. Flonase-50 2 spray each nostril once a day p.r.n. Orders: Orders AMB Spirometry Testing Today J44.89 - Other specified chronic obstructive pulmonary disease Medications: Changed From mometasone-formoterol 200-5 mcg/actuation (Dulera) 2 puffs PO BID 13 grams 3RF for asthma To mometasone-formoterol 200-5 mcg/actuation (Dulera) 2 puffs PO BID 13 grams 5RF for asthma 30 days Coding Level of Care Code Est Pt Level 3 (91025) Diagnoses Asthma-COPD overlap syndrome J44.89 Allergic rhinitis J30.9 CPT Codes Spirometry - CPT: 91200- Spirometry ([id number])
[2024-09-25 13:38] VITALS: BP 122/80; PULSE 74; O2SAT 97; BMI 26.0
== END 2024-09-25 14:18 | disposition home or self-care (01) ==
LOC: HO.HPS 12:49
PROVIDERS: PCP Internal Medicine; Visit Provider Internal Medicine
DX: J44.89 Other specified chronic obstructive pulmonary disease (principal); J30.9 Allergic rhinitis, unspecified
CPT/HCPCS: 94010; 99213

== ENCOUNTER → 2024-09-25 12:48 | Outpatient (BNVA) | payer OTHER, SELFPAY | PROVIDERS: PCP Internal Medicine; Visit Provider Internal Medicine | DX: J44.89 Other specified chronic obstructive pulmonary disease (principal); J30.9 Allergic rhinitis, unspecified | CPT/HCPCS: 94010 ==

== ENCOUNTER 2024-12-09 14:00 | Outpatient (REF) | payer OTHER, SELFPAY ==
--- NOTE | ~2024-12-09 | XR_ITS ---
EXAMINATION: XR CHEST 2 VIEWS HISTORY: J44.9 - Chronic obstructive pulmonary disease, unspecified COMPARISON: There are no prior studies available for comparison. FINDINGS: PA and lateral views of the chest are submitted. The lungs are expanded and clear. There is no pleural effusion, pneumothorax, or pulmonary vascular congestion. The heart is normal in size. The bones are intact. XR/XR chest 2V IMPRESSION: Clear lungs. Electronically signed by: Kevin Limon MD 12/09/2024 02:58 PM EDT
--- OUTSIDE RECORDS SUMMARY | 2024-12-09 18:32 | XMS_ITS | Clinical Summary ---
Author Organization [facility] Address [address] [place] [address] Phone Care Team Providers Care Customer Greeter Name Role Phone John Martinez DO Primary Care Provider [phone] Allergies Active Allergy Reactions Criticality Noted Date Comments Chocolate 03/08/2023 Dog Dander 03/08/2023 Pollen Extracts 03/08/2023 Ragweed 03/08/2023 Medications DULERA 200-5 mcg/actuation HFAA 3 Active cholecalciferol (VITAMIN D3) 10,000 unit tablet Take 10,000 Units by mouth daily. Active coenzyme Q10 100 mg capsule Take 100 mg by mouth daily. Active omega-3 fatty acids-fish oil 340-1,000 mg Cap Take by mouth daily. Active cetirizine (ZYRTEC) 10 MG tablet take 1 tablet by mouth once a day 30 tablet 11 4 Active atorvastatin (LIPITOR) 40 MG tablet TAKE 1 TABLET BY MOUTH DAILY 90 tablet 3 4 Active therapeutic multivitamin tablet Take 1 tablet by mouth daily. Active acetaminophen (TYLENOL) 325 mg tablet Take 1-2 tablets (325-650 mg total) by mouth every 6 (six) hours as needed (mild - moderate pain). 4 Active polyethylene glycol (MIRALAX) 17 gram/dose powder Take 17 g by mouth daily. Active fluticasone propionate (FLONASE) 50 mcg/actuation nasal spray 2 SPRAYS TO EACH NOSTRIL ONCE DAILY NEEDED SHAKE GENTLY BEFORE USING 16 g 5 5 Active omeprazole (PRILOSEC) 20 MG capsule TAKE 1 CAPSULE BY MOUTH ONCE A DAY NEEDED 30 capsule 11 5 Active albuterol 90 mcg/actuation inhalerIndication s:Chronic obstructive pulmonary disease, unspecified COPD type Inhale 2 puffs into the lungs every 6 (six) hours as needed for wheezing. 18 g 3 5 Active traZODone (DESYREL) 50 MG tabletIndications :Primary insomnia Take 0.5 tablets (25 mg total) by mouth nightly at bedtime. 15 tablet Active montelukast (SINGULAIR) 10 mg tablet TAKE 1 TABLET BY MOUTH ONCE A DAY 90 tablet 2 5 Active Active Problems Problem Noted Date Diagnosed Date Primary insomnia 06/11/2024 Assessment & Plan (06/11/2024 11:38 AM EDT): Shiva has been having some issues with sleep-I wrote for a small dose of trazodone-to be taken as needed. I informed him to call if there are any other issues or concerns. He understands and agrees. S/P ventral herniorrhaphy 02/26/2024 Rash and other nonspecific skin eruption 024 Assessment & Plan (07/10/2023 12:20 PM EDT): I wrote for the antifungal and steroid cream-to be applied as directed. He will call if there are any other issues or concerns. He understands and agrees. Routine medical exam 06/07/2023 Assessment & Plan (06/11/2024 11:19 AM EDT): Shiva Colon is a 69 y.o. year old male presenting for his annual physical exam. I reviewed the adult health update-electronic questionnaire. he will go for his above lab work and I will update him with the results. he has a healthy diet and exercise regimen. he will follow up in a year for their annual physical exam. he understands and agrees. Assessment & Plan (06/07/2023 10:47 AM EDT): Shiva Colon is a 68 y.o. year old male presenting for his annual physical exam. I reviewed the adult health update-electronic questionnaire. he will go for his above lab work and I will update him with the results. he has a healthy diet and exercise regimen. he will follow up in a year for their annual physical exam. he understands and agrees. Chronic left shoulder pain 06/07/2023 Assessment & Plan (06/07/2023 10:47 AM EDT): Shiva has intermittent left shoulder pain-he had a steroid shot recently-this improved his symptoms. I advised him to continue with his exercises. Need for Td vaccine 06/07/2023 Assessment & Plan (06/07/2023 10:48 AM EDT): Shiva would like to have his TD vaccine given today in the office-this was given today without any complications. He was appreciative. Pneumococcal vaccination indicated 06/07/2023 Assessment & Plan (06/07/2023 10:47 AM EDT): Shiva would like to have his pneumonia vaccine given today in the office-this was given today without any complications. He was appreciative. Screening for prostate cancer 03/08/2023 Assessment & Plan (12/12/2023 1:46 PM EDT): Shiva is due for blood work prior to his next CPE. Assessment & Plan (03/08/2023 11:19 AM EST): Ye is due for PSA-I ordered this today and I will update him with the result. Need for hepatitis C screening test 03/08/2023 Assessment & Plan (03/08/2023 11:18 AM EST): eY is due for lab work-I ordered this today and I will update him with the result. Screening for abdominal aortic aneurysm 03/08/19 Assessment & Plan (03/08/2023 11:18 AM EST): Ye is due for a abdominal aortic aneurysm screening given his history of smoking, male, and over 65. He was agreeable to this-I ordered this today and I will update him with the result. History of tobacco use disorder 03/08/2023 Assessment & Plan (03/08/2023 11:18 AM EST): Ye smoked in the past-he quit back in the 90s. He smoked for over 20 years and is a candidate for a abdominal aortic aneurysm screen-I ordered the ultrasound today at his request-I will update him with the result. Mixed hyperlipidemia 03/08/2023 Assessment & Plan (06/11/2024 11:20 AM EDT): Shiva Colon has hypercholesterolemia and he is taking the above medication as directed without any side effects. his most recent cholesterol labs were reviewed. he will follow up as directed. Assessment & Plan (12/12/2023 1:34 PM EDT): Shiva Colon has hypercholesterolemia and he is taking the above medication as directed without any side effects. his most recent cholesterol labs were reviewed. he will follow up as directed. Assessment & Plan (06/07/2023 10:28 AM EDT): Shiva Colon has hypercholesterolemia and he is taking the above medication as directed without any side effects. his most recent cholesterol labs were reviewed. he will follow up as directed. Assessment & Plan (03/08/2023 11:17 AM EST): Ye has a history of hyperlipidemia. I will review his most recent lab work-I do want him to repeat labs later this week and I will update him with the results. Currently he is taking a statin. Seasonal allergies 03/08/2023 Assessment & Plan (03/08/2023 11:19 AM EST): Ye has seasonal allergies. He is taking his allergy medication as directed. Gastroesophageal reflux disease without esophagi tis 03/08/2023 Assessment & Plan (12/12/2023 1:34 PM EDT): Stable on his omeprazole. Assessment & Plan (03/08/2023 11:17 AM EST): Ye has GERD-he is taking omeprazole as directed. He is followed by GI and had an endoscopy done recently. I will await the record release form. Chronic obstructive pulmonary disease 03/08/2023 Assessment & Plan (06/11/2024 11:38 AM EDT): Overall stable COPD-he is followed by a specialist and he is taking his inhalers as directed. Follow-up as needed. He understands and agrees. Assessment & Plan (03/08/2023 11:17 AM EST): Ye has a history of COPD-I will review his previous medical record in detail once it is faxed over. He is taking albuterol as needed. He has a history of smoking- quit back in the 90s. Follow-up in 3 months for his CPE. Laboratory examination order ed as part of a routine general medical examination 03/08/2023 Assessment & Plan (12/12/2023 1:46 PM EDT): Shiva is due for blood work prior to his next CPE. Assessment & Plan (03/08/2023 11:18 AM EST): Ye is due for labs-I ordered this today and I will update him with the result. Follow-up for CPE in 3 months. Resolved Problems Problem Noted Date Diagnosed Date Resolved Date Umbilical hernia without obs truction and without gangrene 07/10/2023 02/26/2024 Assessment & Plan (12/12/2023 1:45 PM EDT): Shiva has umbilical hernia-he will follow-up with a general surgeon for repair in the near future. No concerns of this. Assessment & Plan (07/10/2023 12:19 PM EDT): Shiva has an umbilical hernia-reducible. I put a referral into Dr. Umanzor for a consult for possible procedure down the road but I informed him that there is no immediate concerns at present. Guidance given. I informed him to watch his intra-abdominal pressure. I informed him to call if there are any other issues or concerns. He understands and agrees. Encounters Date Type Department Care Team Description 12/09/2024 Refill [facility] [address] [place] [address] John Martinez, DO Medication Refill 12/09/2024 Orders Only [facility] [address] [place] [address] Provider, MD Mery from Last 3 Months Immunizations Immunization Administration Dates Next Due Influenza High-Dose Quadriva lent Preservative Free IM 12/14/2022,11/08/2021,11/18/2020 Influenza Quadrivalent MDCK Preservative Free IM 10/31/2019 Pneumococcal conjugate PCV20 06/07/2023 Td (adult),2 Lf Tetanus Toxo id, PF, Adsorbed 06/07/2023 Family History Medical History Relation Comments Parkinsonism Father Stroke Father Colon cancer Maternal Grandfather Osteoporosis Mother Relation Status Comments Brother Father Maternal Grandfather Mother Alive Social History Tobacco Use Types Packs/Day Years Used Date Smoking Tobacco: Former Cigarettes 1 25 1 - 1994 Smokeless Tobacco: Never Tobacco Cessation:Counseling Given: Not Answered Alcohol Use Standard Drinks/Week Comments Yes 6 (1 standard drink = 0.6 oz pur e alcohol) 3 days a week wine. Child or Family Care Answer Date Record ed Do you have problems with on e of the following making it difficult for you to work, study, or receive health care? No 06/10/2024 Education Answer Date Recorded Are you interested in more education? Not on tamela e 02/22/2023 Are you concerned about learning? Not on file 02/22/2023 No 02/22/2023 No 02/22/2023 Food Answer Date Recorded Within the past 6 months we worried whether our food would run out before we got money to buy more. I choose not to answer 06/10/2024 Within the past 6 months the food we bought just didn't last and we didn't have enough money to get more. I choose not to answer 06/10/2024 Residential Stability Answer Date Recor ded What is your housing situation today? I have igor perez 06/10/2024 How many times have you move d in the past 12 months? Zero (I did not move) 06/10/2024 Paying for Meds Answer Date Recorded Do you have trouble paying for medicines? No 06/10/2024 Paying Utility Bills Answer Date Record ed Do you have trouble paying your heating or elect ricity bill? No 06/10/2024 Transportation Answer Date Recorded Has the lack of transportati on kept you from medical appointments or from getting medications? No 06/10/2024 Digital Access Answer Date Recorded No 06/10/2024 Yes 06/10/2024 Do you have reliable internet access at home? Ye s 06/10/2024 Do you have a device (e.g., phone, tablet, computer) with a working camera? I choose not to answer 06/10/2024 Intimate Partner Violence Answer Date R ecorded Are you denied basic needs s uch as food, clothing, or medical care? No 06/10/2024 In the past 12 months have y ou been in a relationship with a person who hurts, threatens, or tries to control you? No 06/10/2024 Are you denied basic needs s uch as food, clothing, or medical care? No 06/10/2024 In the past 12 months have y ou been in a relationship with a person who hurts, threatens, or tries to control you? 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 Not on file Not on file Not on file Last Filed Vital Signs Vital Sign Reading Time Taken Comments Blood Pressure 126/74 06/11/2024 11:07 AM EDT Pulse 64 06/11/2024 11:07 AM EDT Temperature 36.6 C (97.8 F) 06/11/2024 11:07 AM EDT Respiratory Rate 17 02/06/2024 12:45 PM EST Oxygen Saturation 98% 06/11/2024 11:07 AM EDT Inhaled Oxygen Concentration - - Weight 88.5 kg (195 lb) 02/06/2024 9:30 AM EST Height 188 cm (6' 2 ) 06/11/2024 11:07 AM EDT Body Mass Index 25.04 02/06/2024 9:30 AM EST Plan of Treatment Upcoming Encounters Date Type Department Care Team (Late st Contact Info) Description 06/12/2025 11:00 AM EDT Office Visit [facility] [address] [place] [address] John Martinez DO [address], [address] [place], [place] [id number] [email or web address] Health Maintenance Due Date Last Done Comments COLOGUARD 2000 FIT TEST 2000 FOBT 2000 SIGMOIDOSCOPY 2000 VIRTUAL COLONOSCOPY 2000 INFLUENZA VACCINE (#1) 2024 , 12/14/2022, 11/08/2021, Additional history exists COVID-19 VACCINE ( season) 2024 12/02/2023, 11/23/2021, 09/03/2021, Additional history exists DEPRESSION SCREENING 06/10/2025 06/10/2024 COLONOSCOPY 07/16/2027 07/15/2022 COLORECTAL CANCER SCREENING 07/16/2027 SCREENING FOR DIABETES 07/19/2027 07/18/2024 LIPID PANEL 07/18/2029 07/18/2024, 03/14/2023 ZOSTER VACCINES (1 of 2) 06/06/2030 Pos tponed from 2005 (Patient Declines / Guardian Declines) Adult Td,Tdap Booster 06/06/2033 06/07/2023 HEPATITIS C SCREENING Completed 03/14/2023 ABDOMINAL AORTIC ANEURYSM (AAA) SCREENING Completed 04/07/2023 PNEUMOCOCCAL VACCINES (50+ years) Completed 06/07/2023 RSV VACCINE Completed 12/02/2023 SMOKING STATUS SCREENING (Once After 26 Yrs) Completed 06/11/2024 HEPATITIS A VACCINES Aged Out No long er eligible based on patient's age to complete this topic HIB VACCINES Aged Out No longer eligi ble based on patient's age to complete this topic MENINGOCOCCAL VACCINES (ACWY) Aged Out No longer eligible based on patient's age to complete this topic MENINGOCOCCAL VACCINES (B) Aged Out N o longer eligible based on patient's age to complete this topic Medical Devices Implanted Type Area Military Technician Device Identifier Shelf Expiration Date Model / Serial / Lot Mesh Surgical 15cm 8 Hernia Prolene Polypropylene Nonabsorbable Repair Bx/[id number] - [id number] Implanted:Qty: 1 on 02/06/2024 by Minal Umanzor MD at [facility] STANDARD N/A: Umbilical JNJ [employer] / DIVISION OF J 05/20/2028 PMII / / [id number] Procedures Procedure Name Priority Date/Time Associated Diagnosis Comments OUTSIDE XR IMAGING REPORT ONLY Routine 12/09/2024 3:04 PM EDT LIPID PANEL Routine 07/18/2024 8:31 AM EDT Mixed hyperlipidemia US ABDOMINAL AORTIC SCREENING Routine 04/07/2023 9:22 AM EST Screening for abdominal aortic aneurysm HEPATITIS C ANTIBODY, QUALITATIVE Routine 03/14/2023 9:53 AM EST Need for hepatitis C screening test HM COLONOSCOPY FOR RESULT ENTRY ONLY Routine 07/15/2022 12:25 PM EDT from Last 3 Months or Most Recently Relevant to Health Maintenance Results * Outside XR Imaging Report Only (12/09/2024 3:04 PM EDT) us Historical Provider MD HEIN XR CHEST Final Res ult * (ABNORMAL) Lipid panel (07/18/2024 8:31 AM EDT) HDL 70 mg/dL [facility] Comment: Interpretation <40 mg/dL: Low HDL cholesterol (major risk factor for CHD) Greater than or equal to 60 mg/dL: High HDL cholesterol ( negative risk factor for CHD) HDL - cholesterol is affected by a number of factors, e.g. smoking, excerise, hormones, sex and age. CHOLESTEROL 178 0 - 240 mg/dL [facility] TRIGLYCERIDES 62 30 - 160 mg/dL [facility] LDL 96 50 - 129 mg/dL [facility] Comment: LDL levels in terms of risk for coronary heart disease: <100 mg/dL: Optimal 100-129 mg/dL: Near or above optimal 130-159 mg/dL: Borderline high 160-189 mg/dL: High >190 mg/dL: Very High CARDIAC RISK RATIO 2.5(L) 3.4 - 5.0 C [facility] Blood 07/18/2024 8:31 AM EDT 07/18/2024 8:33 AM EDT us John Martinez DO LAB BLOOD ORDERABLES Final Resul t [address] [address] * US Abdominal Aortic Screening (04/07/2023 9:22 AM EST) Anatomical Region Laterality Modality Abdomen Ultrasound 04/07/2023 11:0 2 AM EST Impressions 04/07/2023 11:03 AM EST No evidence of abdominal aortic aneurysm.. Narrative 04/07/2023 11:03 AM EST US ABDOMINAL AORTIC SCREENING COMPARISON: None FINDINGS: Technically adequate exam demonstrates: Examination of the abdominal aorta demonstrates no evidence of aneurysm. The abdominal aorta measures 2.4 cm proximally, 2.4 cm in its midportion, and 2.3 cm distally. The common iliac arteries measure 1.6 cm on the right and 1.5 cm on the left. Procedure Note Donald Mancini MD, BRIJESH - 04/07/2023 US ABDOMINAL AORTIC SCREENING COMPARISON: None FINDINGS: Technically adequate exam demonstrates: Examination of the abdominal aorta demonstrates no evidence of aneurysm.The abdominal aorta measures 2.4 cm proximally, 2.4 cm in its midportion,and 2.3 cm distally. The common iliac arteries measure 1.6 cm on the right and 1.5 cm on theleft. IMPRESSION: No evidence of abdominal aortic aneurysm.. us John Martinez DO IMG US ABDOMEN Final Result * Hepatitis C antibody, qualitative (03/14/2023 9:53 AM EST) HCV NON-REACTIV E NON-REACTI VE [facility] Blood 03/14/2023 9:53 AM EST 03/14/2023 9:56 AM EST John Martinez DO LAB BLOOD ORDERABLES Final Resul t [address] [address] * COLONOSCOPY FOR RESULT ENTRY ONLY (07/15/2022 12:25 PM EDT) Historical Provider HEALTH MAINTENANCE Edited Result - Final from Last 3 Months or Most Recently Relevant to Health Maintenance Insurance [address] [place], [place] [address] [place] [address] [address] [place], [place] [address] Advance Directives For more information, please contact: [phone] (9AM - 5PM Zina/[facility], Monday-Monday) * Full Code (Latest Code Status on File) Date Activated Date Inactivated Comments 02/06/2024 9:23 AM Question Answer Comments Code Status Confirmed With: Patient Care Teams Customer Greeter Relationship Specialty Start Date End Date Sahd, John F, DO [address] [place] [address], [address] [place] [address] [email or web address] PCP - General Family Medicine 02/22/23 Additional Source Comments The information contained in this document represents components of the legal health record. It is not the complete legal health record.[facility]
--- OUTSIDE RECORDS SUMMARY | 2024-12-09 18:32 | XMS_ITS | Encounter Summary ---
Author Organization [facility] Address [address] [place] [address] Phone Care Team Providers Care Assistant Facility Manager Name Role Phone John Martinez DO Primary Care Provider [phone] Reason for Visit * Reason Comments Medication Refill Encounter Details Date Type Department Care Team ([facility] st Contact Info) Description 12/09/2024 Refill [facility] Medicine [address] [place] [address] John Martinez DO [address] [facility] [address] [place] [address] [email or web address] Medication Refill Social History Tobacco Use Types Packs/Day Years Used Date Smoking Tobacco: Former Cigarettes 1 1994 Smokeless Tobacco: Never Alcohol Use Standard [...] 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 Not on file Not on file documented as of this encounter Plan of Treatment Upcoming Encounters Date Type Department Care Team (Late st Contact Info) Description 06/12/2025 11:00 AM EDT Office Visit [facility] Medicine [address] [place] [address] John Martinez DO [address] [facility], [address] [place], [place] [id number] documented as of this encounter Visit Diagnoses Not on filedocumented in this encounter Additional Health Concerns Assessment Noted Time PHQ-2 Depression Total Score: 0 06/11/19 25 1:55 PM EDT documented as of this encounter Care Teams Assistant Facility Manager Relationship Specialty Start Date End Date John Martinez DO [address] [place] [address], [address] [place] [address] [email or web address] PCP - General Family Medicine 02/22/23 documented as of this encounter Additional Source Comments The information contained in this document represents components of the legal health record. It is not the complete legal health record.[facility]
--- OUTSIDE RECORDS SUMMARY | 2024-12-09 18:32 | XMS_ITS | Encounter Summary ---
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 Not on file Not on file documented as of this encounter Plan of Treatment Upcoming Encounters Date Type Department Care Team (Late st Contact Info) Description 06/12/2025 11:00 AM EDT Office Visit [facility] Family Medicine [address] [place] [address] John Martinez DO [address], [address] [place] [address] [email or web address] documented as of this encounter Visit Diagnoses Not on filedocumented in this encounter Additional Health Concerns Assessment Noted Time PHQ-2 Depression Total Score: 0 06/06/19 24 4:53 PM EDT documented as of this encounter Care Teams Die Reamer Relationship Specialty Start Date End Date John Martinez DO [address] [place] [address], [address] [place] [address] [email or web address] PCP - General Family Medicine 02/22/23 documented as of this encounter Additional Source Comments The information contained in this document represents components of the legal health record. It is not the complete legal health record.[facility]
--- OUTSIDE RECORDS SUMMARY | 2024-12-09 18:32 | XMS_ITS | Encounter Summary ---
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 Not on file documented as of this encounter Plan of Treatment Upcoming Encounters Date Type Department Care Team (Late st Contact Info) Description 06/12/2025 11:00 AM EDT Office Visit [facility] Medicine [address] [place] [address] John Martinez DO [address], [address] [place] [address] documented as of this encounter Procedures Procedure Name Priority Date/Time Associated Diagnosis Comments OUTSIDE XR IMAGING REPORT ONLY Routine 12/09/2024 3:04 PM EDT documented in this encounter Results * Outside XR Imaging Report Only (12/09/2024 3:04 PM EDT) us Historical Provider MD HEIN XR CHEST Final Res ult documented in this encounter Visit Diagnoses Not on filedocumented in this encounter Additional Health Concerns Assessment Noted Time PHQ-2 Depression Total Score: 0 06/11/19 25 1:55 PM EDT documented as of this encounter Care Teams Psych Arnp Relationship Specialty Start Date End Date John Martinez DO [address] [place] [address], [address] [place] [address] [email or web address] PCP - General Family Medicine 02/22/23 documented as of this encounter Additional Source Comments The information contained in this document represents components of the legal health record. It is not the complete legal health record.[facility]
== END 2024-12-09 14:01 | disposition home or self-care (01) ==
LOC: HO.XRAY 14:00
PROVIDERS: PCP Family Medicine; Visit Provider Internal Medicine
DX: J44.89 Other specified chronic obstructive pulmonary disease (principal); Z79.899 Other long term (current) drug therapy; Z87.891 Personal history of nicotine dependence
CPT/HCPCS: 71046

== ENCOUNTER 2024-12-09 14:00 | Outpatient (AMB) | payer OTHER, SELFPAY ==
[2024-12-09 14:08] VITALS: BP 120/80; PULSE 68; O2SAT 97; BMI 26.0
--- NOTE | 2024-12-09 14:08 | MHC.OFFVIS ---
Vital Signs 12/09/24 14:08 Height 6 ft 2 in Weight 202 lb 13.204 oz BMI 26.0 BP 120/80 Blood Pressure Location Lt brachial Position Sitting Pulse 68 Pulse Source Pulse Oximeter Pulse Oximetry (%) 97 Oxygen Delivery Method Room Air Intake Visit Reasons: Trouble getting all of his air out of lungs Intake Note: pt is here for sick visit, he states he is having a hard time with his breathing. Metal Wire Technician Required: No Valve Technician: Valve Technician offered & declined Allergies environmental allergies Allergy (Verified 12/09/24 14:20) Sneezing Medication List - Last Reconciled 12/09/24 by Mark Cheng MD albuterol sulfate 90 mcg/actuation 2 inhalations inhalation Q6-8H PRN atorvastatin 40 mg PO DAILY cetirizine 10 mg PO DAILY coenzyme Q10 (Ultra CoQ10) 75 mg PO DAILY fluticasone propionate 50 mcg/actuation sprays intranasal diecw-pb-[id number]-hsm-ibe-wuepizs-ast [phone] mg (MegaRed [place]-3 Krill Oil) caps PO mometasone-formoterol 200-5 mcg/actuation (Dulera) 2 puffs PO BID 30 days montelukast 10 mg PO DAILY 90 days omeprazole 20 mg PO DAILY Do you need a note to return to daycare/school/sports/work: No HPI HPI Trouble getting all of his air out of lungs: Details: Mr. Colon, comes today for an urgent visit because for the past 1 week to 10 days he is having increased shortness of breath, and has a feeling that he does not . Breathe out well He does have mild degree. Of cough but no expectoration He has no fever or chills. According to his he does have some raspy breathing at night. He had a recent travel to [place] and coming back started having this feeling. He does use his inhalers regularly. [facility] Medical History Asthma-COPD overlap syndrome HLD (hyperlipidemia) Allergic rhinitis Asthma COPD (chronic obstructive pulmonary disease) Surgical History H/O colonoscopy (~2018) Social History Are you a primary care analyst to a significant other at home: No Do you presently have visiting nurse or other home services: No Patient Tobacco Use Status: Former Tobacco user Tobacco use type: Cigarette Review of Systems Const All systems reviewed & are unremarkable except as noted in HPI and below Eyes Reports no additional complaints ENT Reports nasal congestion and Reports nasal discharge (Mild intermittent) Card Denies chest pain, Denies irregular heart rhythm and Denies leg edema Resp Reports as per HPI GI Reports as per HPI Reports no additional complaints Musc Reports no additional complaints Skin/Breast Reports system reviewed and no additional complaints, except as documented Neuro Reports no additional complaints Psych Reports no additional complaints Physical Exam Vital Signs: Last Vital Signs Pulse 68 12/09/24 14:08 BP 120/80 12/09/24 14:08 Pulse Ox 97 12/09/24 14:08 Oxygen Delivery Method Room Air 12/09/24 14:08 BMI result Body Mass Index 26.0 Const General: healthy appearing, comfortable, no acute distress, alert and awake Orientation/consciousness: patient oriented x3 HEENT Head: Yes normal to inspection General nose exam: No nasal polyps present and No nasal discharge present Face and sinus: Yes sinuses nontender Mouth: oropharynx normal Throat: Yes posterior oropharynx normal Eyes General: appearance normal, both eyes and all related structures Neck Neck: Yes normal visual inspection, Yes no lymphadenopathy, Yes trachea midline and Yes no JVD Thyroid: Thyroid normal Chest Chest palpation & inspection: normal inspection of the chest, normal palpation of entire chest wall and no tenderness Resp Other: Percussion note is resonant, Breath sounds are quite distant with prolonged expiratory phase, No audible wheezes or rhonchi. Cardio Palpation: normal PMI Rate: regular rate Rhythm: regular rhythm Heart sounds: no gallops and no murmurs GI Palpation (GI): Soft to palpation, nontender, No hepatosplenomegaly present and no masses Auscultation: normal bowel sounds Back/Spine/Pelvis Thoracic/Lumbar Spine: thoracic and lumbar spine normal to inspection Skin General skin exam: no rashes or lesions noted Neuro General: patient oriented x3 and no focal motor deficits Cranial nerves: Yes CN's II-XII intact bilaterally Extrem General: Yes normal to inspection, Yes no clubbing, cyanosis or edema and Yes no calf tenderness Psych Appearance: grossly normal and well kempt Speech and movement: Normal speech and movement present Results Reviewed Results Reviewed: CHEST XRAY : clear , no consolidation > Assessment & Plan Assessment & Plan (1) Asthma-COPD overlap syndrome: Comment: HE HAS A COMBINATION OF MILD COPD WITH FEATURES OF BRONCHIAL ASTHMA. REMAINS WELL CONTROLLED WITH THE CURRENT MEDICAL REGIMEN. SPIROMETRY SHOWS THAT HIS THE OBSTRUCTIVE COMPONENT IS DEFINITELY IMPROVED COMPARED TO 2021 TODAY I THINK HE HAS A MILD ACUTE EXACERBATION. Code(s): J44.89 - Other specified chronic obstructive pulmonary disease Category: Medical Plan: CHEST X-RAY IS ORDERED TO MAKE SURE THERE IS NO ACUTE ALVEOLAR DISEASE. ADVISED TO CONTINUE USING DULERA 200-52 PUFFS B.I.D., AND USE ALBUTEROL HFA 2 PUFFS Q 6 HOURS P.R.N.. * A SHORT COURSE OF PREDNISONE 20 MG B.I.D. FOR 5 DAYS (2) Allergic rhinitis: Comment: This patient has been treated for long-time for possibility of allergic rhinitis and upper airway allergies. His symptoms are consistent with, chronic, perenial ALLERGIC rhinosinusitis. His possible triggers include the usual household items, But especially the dog that he has as a PET. He is well aware of this. At present his nasal symptoms are well controlled Code(s): J30.9 - Allergic rhinitis, unspecified Category: Medical Plan: CONTINUE MONTELUKAST 10 MG DAILY. FLONASE-52 SPRAY IN EACH NOSTRIL DAILY CETIRIZINE 10 MG ONCE A DAY P.R.N. Orders: Orders XR chest 2V Today J44.89 - Other specified chronic obstructive pulmonary disease, J44.9 - Chronic obstructive pulmonary disease, unspecified Coding Level of Care Code Est Pt Level 3 (82376) Diagnoses Asthma-COPD overlap syndrome J44.89 Allergic rhinitis J30.9
== END 2024-12-09 14:37 | disposition home or self-care (01) ==
LOC: HO.HPS 14:00
PROVIDERS: PCP Internal Medicine; Visit Provider Internal Medicine
DX: J44.89 Other specified chronic obstructive pulmonary disease (principal); J30.9 Allergic rhinitis, unspecified
CPT/HCPCS: 99213

== ENCOUNTER → 2024-12-09 14:46 | Outpatient (BNV) | payer OTHER, SELFPAY | PROVIDERS: PCP Family Medicine; Visit Provider Radiology Diagnostic Radiology | DX: J44.9 Chronic obstructive pulmonary disease, unspecified (principal) | CPT/HCPCS: 71046 ==